=== PATIENT | female | born 2000 | race Caucasian/White ===

== ENCOUNTER → 2022-12-09 | Outpatient (CLI) | payer BC ==
[~2022-12-09] MED LIST: FLAGYL375 MG PO; IMITREX 25MG TA25 MG PO; LAMICTAL 25MG T25 MG PO; ONDANSETRON HYDR4 MG PO; PANTOPRAZOLE SO40 MG PO; SERTRALINE HYD100 MG PO; ZOFRAN ODT4 MG PO
== END ==
LOC: RAD 13:21
DX: H53.8 Other visual disturbances (principal)

== ENCOUNTER → 2023-06-09 | Outpatient (CLI) | payer BC ==
[~2023-06-09] MED LIST changes: +MORGIDOX 1X100100 MG PO
== END ==
LOC: LAB 08:16
DX: G43.909 Migraine, unspecified, not intractable, without status migrainosus (principal)

== ENCOUNTER → 2023-10-05 | Outpatient (CLI) | payer BC | LOC: LAB 11:24 | DX: E55.9 Vitamin D deficiency, unspecified (principal) ==

== ENCOUNTER → 2024-03-30 | Outpatient (CLI) | payer BC ==
[2024-03-30 17:36] LABS: ALBUMIN 4.5 g/dL (3.5-5.0)
[2024-03-30 17:37] LABS: CALCIUM 9.4 mg/dL (8.3-10.5)
[2024-03-30 17:38] LABS: TOTAL PROTEIN 7.3 g/dL (6.4-8.3)
[2024-03-30 17:40] LABS: TOTAL BILIRUBIN 0.3 mg/dL (0.2-1.2)
== END ==
LOC: LAB 17:17
PROVIDERS: Nurse Practitioner
DX: E16.2 Hypoglycemia, unspecified (principal)

== ENCOUNTER → 2024-04-11 | Outpatient (CLI) | payer BC ==
[2024-04-12 00:13] LABS: INSULIN 20 uIU/mL (2-23)
== END ==
LOC: LAB 14:25
PROVIDERS: Nurse Practitioner
DX: E16.2 Hypoglycemia, unspecified (principal)

== ENCOUNTER → 2024-05-18 | Outpatient (CLI) | payer BC ==
[~2024-05-18] MED LIST changes: +Gadoterate 20 ML VIAL IV ONE
== END ==
LOC: RAD 16:13
DX: G43.719 Chronic migraine without aura, intractable, without status migrainosus (principal)
CPT/HCPCS: A9575

== ENCOUNTER → 2024-05-23 | Outpatient (CLI) | payer BC ==
[~2024-05-23] MED LIST changes: -Gadoterate 20 ML VIAL IV ONE
== END ==
LOC: LAB 16:15
DX: R10.9 Unspecified abdominal pain (principal)